=== PATIENT | male | born 1995 | race Two or more races ===

== ENCOUNTER 2024-10-10 06:22 | Day surgery (SDC) | payer BC, SELFPAY ==
[2024-10-10] VITALS (12 sets, daily range): BP systolic 118–153; BP diastolic 76–89; PULSE 64–80; RESP 16–20; TEMP 36.7–36.9; O2SAT 95–98; BMI 33.3
--- NOTE | 2024-10-10 06:31 | XR_ITS ---
Examination: CT abdomen and pelvis without contrast. Coronal 3-D reconstructions. Sagittal 2-D reconstructions. Date and time of exam:October 10, 2024 0722 hrs. Indications: Onset mid abdominal pain today CTDI: vol (mGy): 8.73 DLP: (mGycm): 527 Technique: Axial images of the abdomen have been obtained, 3 mm slice thickness Intravenous contrast material has not been administered. Low dose protocols were performed. One or more of the following dose reduction techniques were used; automated exposure control, adjustment of the mA and/or KV according to patient size, use of iterative reconstruction technique. Findings: Fatty infiltration throughout the liver Gallbladder wall is thickened and edematous Spleen is not enlarged No pancreatic or adrenal mass No renal or ureteral calculi, no hydronephrosis Aorta normal size Normal appendix No bowel obstruction No diverticulitis Contracted urinary bladder Adequate bone density Impression: Recommend hepatobiliary sonography follow-up to confirm acute acalculous cholecystitis
[2024-10-10] MEDS: METOCLOPRAMIDE 5 MG TABLET 10 MG PO (06:40)
--- NOTE | 2024-10-10 08:03 | XR_ITS ---
Examination: Abdomen sonogram, Limited Date and time of exam: October 10, 2024 0815 hours INDICATIONS: Right upper abdominal pain beginning 3 days ago with thickened gallbladder wall on CT abdomen pelvis study this morning Technique: Real-time bergeron scale transabdominal sonographic images of the upper abdomen obtained. Findings: Gallbladder wall 0.5 cm with edema Multiple gallstones, the largest 24 mm Common bile duct 0.4 cm Pancreatic head 2.5 cm Liver 14.7 cm irregular contour no focal liver lesions Normal hepatopedal portal venous flow Patent IVC IMPRESSION: Acute calculus cholecystitis, consider MRCP follow-up as clinically warranted
[2024-10-10 08:38] LABS: Basophils # (Auto) 0.1 Thou/mm3 (0.0-0.2); Basophils % (Auto) 0 % (0-2.5); Eosinophils # (Auto) 0.1 Thou/mm3 (0.0-0.5); Eosinophils % (Auto) 1 % (0-10); Hematocrit 46.4 % (41.0-53.0); Immature Granulocytes % (Auto) 0 % (0-0); Immature Granulocytes Auto 0.05 Thou/mm3 (0.00-0.00); Lymphocytes # (Auto) 2.6 Thou/mm3 (1.0-4.8); Lymphocytes % (Auto) 20 % (10-50); Mean Corpuscular HGB Conc 34.5 g/dl (31.0-37.0); Mean Corpuscular Hemoglobin 28.5 pg (25.0-35.0); Mean Corpuscular Volume 83 fL (80-100); Monocytes # (Auto) 1.3 Thou/mm3 (0.0-0.8); Monocytes % (Auto) 10 % (0-12); Neutrophils # (Auto) 8.7 Thou/mm3 (1.8-7.7); Neutrophils % (Auto) 68 % (37-80); Nucleated Red Blood Cell % 0 /100 WBC (0); Platelet Count 268 Thou/mm3 (140-440); RDW Standard Deviation 38.3 fL (35.1-43.9); Red Blood Count 5.62 Miln/mm3 (4.50-5.90); White Blood Count 12.8 Thou/mm3 (3.8-10.6)
[2024-10-10 09:07] LABS: Alanine Aminotransferase 41 U/L (10-49); Albumin, Serum 4.9 gm/dL (3.5-5.0); Alkaline Phosphatase 68 U/L (46-116); Anion Gap 8 (7-16); Aspartate Amino Transferase 19 U/L (0-34); BUN/Creatinine Ratio 14 Ratio (12-20); Bilirubin,Total 1.2 mg/dL (0.3-1.2); Blood Urea Nitrogen 13 mg/dL (9-23); Calcium 9.4 mg/dL (8.3-10.6); Calcium (Corrected) 9.4 mg/dL (8.5-10.1); Carbon Dioxide 26.9 mMol/L (20.0-31.0); Chloride 99 mMol/L (98-107); Creatinine (Component) 0.9 mg/dL (0.6-1.3); Estimated Creatinine Clearance 126.5 mL/min (>60); Globulin 2.5 gm/dL (2.3-3.5); Glucose 103 mg/dL (74-106); Lipase 26 U/L (12-53); Osmolality,Calculated 268 (275-295); Potassium 3.6 mMol/L (3.4-5.1); Sodium 134 mMol/L (136-145); Total Protein 7.4 gm/dL (5.7-8.2); eGFR > 60 See Note
--- NOTE | 2024-10-10 09:30 | PC.NURSE ---
in to assess pt. pt from home with c/o abd pain, n/v, and chills. pt reports pain suddenly started 3 days ago. pt without further complaints at this time. orders received and initiated. call light placed within reach. plan of care ongoing.
--- NOTE | 2024-10-10 09:32 | PD.EDABDPN ---
ED Abdominal Pain RME/HPI General Chief Complaint: Abdominal Pain Stated complaint: ABD PAIN,N/V Time seen by provider: 10/10/24 06:26 Arrival date/time: 10/10/24 06:22 29-year-old male with no significant medical problems presents to the emergency department complains of abdominal pain nausea vomiting since Wednesday patient denies fever chest pain or shortness of breath Limitations: no limitations Related Data Allergies Allergy/AdvReac Type Severity Reaction Status Date / Time NKA Allergy Unknown Uncoded 10/09/14 19:46 Review of Systems Review of Systems Systems Reviewed: All systems reviewed, normal except as documented Constitutional Constitutional: Reports system reviewed and no additional complaints, except as documented, Denies fever(s) and Denies headache(s) Eyes Eyes: Reports system reviewed and no additional complaints, except as documented and Denies blurry vision ENT Ears, Nose, Mouth, and Throat: Reports system reviewed and no additional complaints, except as documented, Denies headache(s), Denies nasal congestion and Denies nasal discharge Cardiovascular Cardiovascular: Reports system reviewed and no additional complaints, except as documented, Denies chest pain and Denies dyspnea Respiratory Respiratory: Reports system reviewed and no additional complaints, except as documented, Denies chest congestion, Denies cough and Denies dyspnea Gastrointestinal Gastrointestinal: Reports system reviewed and no additional complaints, except as documented, Reports abdominal pain, Reports nausea and Reports vomiting Integumentary/Breasts Skin/Breast: Reports system reviewed and no additional complaints, except as documented and Denies rash Neurologic Neurologic: Reports system reviewed and no additional complaints, except as documented, Reports as per HPI and Denies headache(s) Past Medical History Social History SMOKING STATUS: Current every day smoker ED Exam General Limitations: Present no limitations General appearance: Present alert and in no apparent distress Head Head exam: Present atraumatic Eye Eye exam: Present normal appearance, PERRL and EOMI; Absent conjunctival injection ENT ENT exam: Present normal exam, normal oropharynx and mucous membranes moist Neck Neck exam: Present normal inspection, full ROM and trachea midline Chest Chest inspection: Present normal inspection and symmetric chest wall rise Respiratory Respiratory exam: Present normal lung sounds bilaterally; Absent respiratory distress Cardiovascular Cardiovascular exam: Present regular rate, normal rhythm and normal heart sounds Abdominal Exam Abdominal exam: Present soft, tenderness and normal bowel sounds; Absent distention, guarding, rebound, rigidity, Engel's sign or tenderness at McBurney's Point Abdominal tenderness: Present RUQ and epigastrium; Absent RLQ Extremities Exam Extremities exam: Present normal inspection and full ROM Back Exam Back exam: Present normal inspection and full ROM Neurological Exam Neurological exam: Present alert, oriented X3 and CN II-XII intact Psychiatric Psychiatric exam: Present normal affect and normal mood Skin Skin exam: Present warm, dry, intact and normal color Course Quality Measures none Orders Category Date Time Status Patient Condition Routine Admission 10/10/24 10:[address] in Surgical Day Care Routine Admission 10/10/24 10:02 Active Activity as Tolerated Routine Care 10/10/24 10:02 Ordered COVID-19 Screening Questionnaire NOW Care 10/10/24 10:00 Active Consent [Obtain Written Consent For:] .NOW Care 10/10/24 10:02 Active Decision to Admit X1 Care 10/10/24 10:00 Completed Intake and Output QSHIFT Care 10/10/24 10:15 Ordered Notify provider NEEDED Care 10/10/24 10:02 Active Consult to General Surgery Stat Cons 10/10/24 10:[address] abdomen pelvis wo con Stat Exams 10/10/24 06:31 Completed US gall bladder Stat Exams 10/10/24 08:03 Completed CBC Stat Lab 10/10/24 08:09 Completed Comprehensive Metabolic Panel Stat Lab 10/10/24 08:09 Completed Lipase Stat Lab 10/10/24 08:09 Completed UA, C/S IF [Urinalysis, C/S if Indicated] Stat Lab 10/10/24 09:39 Received Acetaminophen Tab [Tylenol Tab] Med 10/10/24 10:02 Active 650 mg PO Q6H PRN Cefoxitin [Mefoxin] 2 gm Med 10/10/24 10:02 Active Sodium Chloride 0.9% (P) [Ns 0.9% (P)] 50 ml IV X1 Metoclopramide [Reglan] Med 10/10/24 06:31 Discontinued 10 mg PO X1 ONE Ondansetron Inj [Zofran Inj] Med 10/10/24 10:02 Active 4 mg IV Q6H PRN Code Status Routine Oth 10/10/24 10:02 Ordered Vital Signs Vital signs: Vital Signs Temperature 98.0 F 10/10/24 06:28 Pulse Rate 74 10/10/24 06:28 Respiratory Rate 18 10/10/24 06:28 Blood Pressure 149/85 H 10/10/24 06:28 Pulse Oximetry (%) 96 10/10/24 06:28 Oxygen Delivery Method Room Air 10/10/24 06:28 O2 saturation 96% room air within normal limits Abdominal Pain MDM MDM Narrative MDM Narrative:: 29-year-old male presents to the emergency department complains of abdominal pain nausea vomiting patient for symptoms ongoing for last couple of days patient reports no fever chest pain or shortness of breath On exam patient does not appear ill or toxic patient does not appear in acute distress Exam patient does have generalized tenderness in his abdomen Lab work as well as CT scan obtained CT scan concerning for possible cholecystitis Gallbladder ultrasound obtained Consultation: I spoke with Dr. White general surgeon who accepted the patient for admission Patient data External records reviewed:: [facility] previous records Clinical information provided by:: patient Social determinants that could affect healthcare access:: none Patient has the following chronic illnesses:: none How is presenting disease/condition affected by chronic disease/condition?: no chronic disease Evaluation data The following diagnostics were reviewed and interpreted by me:: lab results and radiology exam(s) Lab and/or radiology exams considered but not ordered:: Labs radiology obtained Interpretation Summary: Reviewed by me Medications / Prescriptions Medications or Prescriptions considered but not ordered:: Given Medication administrations:: Medication Administration History Acetaminophen (Acetaminophen 325 Mg Tablet) 650 mg PO Q6H PRN PRN Reason: Fever >101.5 Stop: 11/09/24 10:01 Cefoxitin Sodium 2 gm/ Sodium (Chloride) 50 mls @ 100 mls/hr IV X1 ONE Stop: 10/10/24 10:31 Ondansetron HCl (Ondansetron Inj 2 Mg/Ml Inj 2 Ml) 4 mg IV Q6H PRN PRN Reason: NAUSEA OR VOMITING Stop: 11/09/24 10:01 Discontinued Medications Metoclopramide HCl (Metoclopramide 5 Mg Tablet) 10 mg PO X1 ONE Stop: 10/10/24 06:32 Last Admin: 10/10/24 06:40 Dose: 10 mg Documented By: CVL Given Consultations Consultation(s) initiated? (list below): Yes Diagnosis Differential diagnosis abdominal pain: abdominal pain, acute appendicitis, gastroenteritis and pancreatitis Most likely diagnosis given after review of the tests above:: Cholecystitis Admission Indicated Admission indicated?: indicated Admission Request Was there a request for admission?: Yes Admission Attestation Admission request attestation: Discussed case with [] from Hospitalist service regarding admission. Discussed patients ED course, exam findings, labs, and radiology results. The Hospitalist [agrees,declines] to accept the patient for admission. Disposition Plan Disposition Plan: Admit Discharge Plan Plan Patient Disposition: Admit Acute Care w/in Hospital Disposition Comment: Stable Problem List Clinical Impression: Acute calculous cholecystitis PA/STORE GIFT WRAP ASSOCIATE Supervising Physician PA/RALPH Supervising Physician: Dr Ny
[2024-10-10 09:44] LABS: Collection Type, Urine Clean Catch; Squamous Epithelial Cell,Urine 0 /hpf (0-5)
[2024-10-10 09:56] LABS: Amorphous Crystals,Urine Present (Absent); Bilirubin,Urine Negative (Negative); Blood,Urine Negative (Negative); Color,Urine Yellow (Lt Yel-Yel); Culture Indicated,Urine Not Indicated; Glucose, Urine Negative (Negative); Ketones,Urine Negative (Negative); Leukocyte Esterase,Urine Negative (Negative); Nitrite,Urine Negative (Negative); PH,Urine 7.5 (5.0-7.0); Protein,Urine 1+ (Neg - Trace); RBC,Urine 5 /hpf (0-3); Urobilinogen,Urine Negative mg/dL (0.0-1.0); WBC,Urine 3 /hpf (0-5)
[2024-10-10] MEDS: CEFOXITIN 2 GM in SODIUM CHLORIDE 0.9% (P) 50 ML IV (10:13)
[2024-10-10 10:29] LABS: Clarity,Urine Hazy (Clear/Hazy)
--- NOTE | 2024-10-10 11:04 | PD.SURHP ---
HPI Date of Admission 10/10/2024 Chief Complaint Chief Complaint: Right upper quadrant abdominal pain with nausea and vomiting HPI 29-year-old male presented to the emergency department with worsening abdominal pain. His pain started 3 days ago in the epigastric and right upper quadrant. The pain was initially intermittent. Over the past few days his pain has become persistent and progressively worse. He has had multiple episodes of nausea and vomiting. He denies fever, chills, jaundice or discoloration of urine or stool. He denies having similar symptoms in the past. He was noted to have elevated WBC. His liver enzymes are unremarkable. CT scan and abdominal ultrasound revealed gallstones with gallbladder wall thickening and edema. Review of Systems Constitutional Constitutional: Denies chills, Denies fever(s) and Reports headache(s) ENT Ears, Nose, Mouth, and Throat: Reports headache(s) Cardiovascular Cardiovascular: Denies chest pain Respiratory Respiratory: Denies cough Gastrointestinal Gastrointestinal: Reports abdominal pain, Reports nausea and Reports vomiting Genitourinary Genitourinary: Denies difficulty urinating Musculoskeletal Musculoskeletal: Reports back pain Neurologic Neurologic: Reports headache(s) Hematologic/Lymphatic Hematologic/Lymphatic: Denies easy bleeding and Denies easy bruising Past Medical History Surgical History OTHER SURGICAL HX: Closed reduction and internal fixation of right tibial fracture Social History SMOKING STATUS: Current every day smoker SUBSTANCE USE: does not use ALCOHOL: Current Meds Home Medications and Allergies Allergies Allergy/AdvReac Type Severity Reaction Status Date / Time NKA Allergy Unknown Uncoded 10/09/14 19:46 Exam Vital Signs Temp Pulse Resp BP Pulse Ox O2 Del Method 98.1 F 80 17 153/85 H 97 Room Air 10/10/24 09:28 10/10/24 09:28 10/10/24 09:28 10/10/24 09:28 10/10/24 09:28 10/10/24 09:28 Constitutional Constitutional: no acute distress Routine HEENT Exam Eye: Present PERRL (Anicteric sclera) Routine Respiratory Exam Respiratory: Present CTA bilaterally Routine Cardiovascular Exam Cardiovascular: Present RRR Routine Abdominal Exam Abdominal: Present soft, normoactive bowel sounds and tenderness (Right upper quadrant tenderness to palpation with guarding, positive Engel sign); Absent distended Results Results: Laboratory Laboratory results: results reviewed Results: Imaging Imaging narrative: CT scan of abdomen pelvis, abdominal ultrasound images reviewed, radiologist interpretation noted Assessment & Plan Problem List (1) Acute calculous cholecystitis: Status: Acute Plan Will keep patient n.p.o. with IV fluids and IV antibiotics and plan for laparoscopic possible open cholecystectomy. Risks include but not limited to infection, bleeding, injury to bowel, liver, stomach, bile duct, retained stone, bile leak, abdominal sepsis and or abdominal abscess, need for further procedure and or operation discussed with the patient. Benefits and alternatives explained to him, all his questions answered, he agreed and consented to proceed with the operation. Quality Measures Quality Measures none
--- NOTE | 2024-10-10 12:06 | PC.CC ---
Pt Cesar Taylor is a 29 yr old male admitted to surgical services for acute calculous cholecystitis. SALES PRODUCER CC met with pt at bedside to complete inital assessment. At time of encounter pt is noted to be alert and oriented to person, place and situation. Pt expressed understanding that he is pending surgery. Pt able to confirm all demographic information. Pt is from home [address] [place] [address], where he lives with family. Pt identifies his brother Nadir Taylor [phone] as surrogate DM. Pt is employed. At baseline pt is independent with ambulation and with completion of his ADLs. Pt does not require supplemental O2. Pt is not diabetic and is not on dialysis. Pt reports not having a primary provider. At tD/c pt states she will return home, with either family transporting him, or if pt is able he will drive himself. Pt provided with [facility] guide for [facility] providers in [facility].
--- NOTE | 2024-10-10 13:59 | PD.SUROPNT ---
Date of Procedure 10/10/24 Pre Op Diagnosis Cholelithiasis with acute cholecystitis Post Op Diagnosis Cholelithiasis with acute cholecystitis Procedure Laparoscopic cholecystectomy Findings Distended gallbladder with gallbladder wall thickening and extensive pericholecystic edema. Large stone at the infundibulum of the gallbladder Procedure Description Patient was brought into the operating room in supine position. After administration of general endotracheal anesthesia abdomen was prepped and draped in standard surgical manner. A Veress needle was inserted through the umbilicus and pneumoperitoneum was obtained up to 15 mmHg. The Veress needle was then removed, a 5 mm infraumbilical incision was made and the 5mm trocar was inserted. Laparoscopic camera was placed. Under direct visualization a laparoscopic camera a 10 mm trocar was placed in subxiphoid and two 5 mm trocars placed in right upper quadrant. The gallbladder was identified and was noted to be very tense, distended, thick-walled with extensive pericholecystic edema. The gallbladder was decompressed with an aspirator. There was a large stone at the infundibulum of the gallbladder. The gallbladder was retracted cephalad and laterally. Dissection started near the infundibulum of gallbladder where cystic duct and gallbladder junction clearly identified. The cystic duct was circumferentially dissected off the peritoneum and surrounding inflammatory tissue. The critical view of safety was clearly demonstrated. Cystic duct was then divided between 2 endoclips proximally and one distally. The cystic artery was similarly dissected and divided. The gallbladder was then from the liver bed using electrocautery. The gallbladder was then placed inside an Endo Catch and removed from the abdomen utilizing subxiphoid trocar site. The area was copiously and thoroughly washed and irrigated, all the fluid was suctioned and the suction fluid returned clear. Hemostasis achieved using electrocautery. Endoclips noted be in place and intact without any bleeding or any leakage. Hemostasis was adequate and satisfactory. The subxiphoid trocar sites fascial defect was closed with 0 Vicryl using Endo Closure device. Instruments and trocars removed, pneumoperitoneum was evacuated and the incisions closed with 4-0 Monocryl in subcuticular fashion. Instrument needle and sponge counts were all reported to be correct X2. Patient tolerated the procedure well, was extubated, breathing spontaneously and without difficulty and was transferred to postanesthesia care in stable condition. Anesthesia GETA and local Pathology / specimen Other (Gallbladder and contents) Estimated Blood Loss 25 Condition Stable Disposition PACU Surgeon Yoselin White MD Surgical Staff Operation Date: 10/10/24 14:15 Case Staff Anesthesiologist: Dank Solano RNkitchenwhere maker: Amalia Mason
--- NOTE | 2024-10-10 14:00 | SUR.PHASEI ---
1400 Patient arrived to recovery resting comfortably in [facility], drowsy and able to arouse with verbal prompting, on oxygen 4L via nasal cannula, breathing unlabored, vital signs stable, denies pain, dressing intact to abdomen; dermabond, no bleeding noted, lung sounds clear upon auscultation, bilateral radial pulses present when palpated, report received from Jace OREILLY and Dr. Solano
--- NOTE | 2024-10-10 14:40 | SUR.PHASEII ---
1440 patient ate two jello and drinking apple juice, tolerating well
--- NOTE | 2024-10-10 14:50 | SUR.PHASEII ---
1450 called patient brother, as patient is ready for discharge, brother stated he was at home and would head to the hospital
--- NOTE | 2024-10-10 15:40 | SUR.PHASEII ---
1540 Patient meets discharge criteria from recovery, awake and alert, breathing unlabored, vital signs stable, denies pain, dressing intact; no bleeding noted, denies nausea, patient assisted with dressing into his clothing by his , discharge instructions given to patient and patients brother, brother signed discharge instructions. Patient given all his belongings prior to discharge, transported via wheelchair and left in a private vehicle.
== END 2024-10-10 15:40 | disposition home or self-care (01) ==
LOC: SERX 07:43 → S2EX 10:14
PROVIDERS: Nurse Practitioner Primary Care; Emergency Provider Emergency Medicine; Referring Provider Surgery; Visit Provider Surgery
PROC: 0FT44ZZ Resection of Gallbladder, Percutaneous Endoscopic Approach (ICD-10-PCS; CPT 47562; principal; 2024-10-10 14:00)
DX: K81.2 Acute cholecystitis with chronic cholecystitis (principal); F17.200 Nicotine dependence, unspecified, uncomplicated
CPT/HCPCS: 47562; 36415; 74176; 76705; 80053; 81001; 83690; 85025; 96365; 96366; 99285; A4217; A4649; J0131; J0694; J1100; J2405; J2704; J3010; J3490; J7050; A9270

== ENCOUNTER 2025-01-15 10:58 | Emergency (ER) | payer BC, SELFPAY ==
[2025-01-15 10:59] VITALS: BMI 33.3
[2025-01-15 11:08] VITALS: BP 143/88; PULSE 102; RESP 18; TEMP 36.7; O2SAT 96
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
[2025-01-15] MEDS: LIDOCAINE HCL 1% 20 ML VIAL INFL (11:18)
[2025-01-15] MEDS: DIPHTH,PERTUSS(ACELL),TET VAC 0.5 ML SYR- ADULT IMi (11:18)
--- NOTE | 2025-01-15 11:27 | PC.NURSE ---
IRRIGATED WOUND FOR SUTURES
== END 2025-01-15 13:14 | disposition home or self-care (01) ==
PROVIDERS: Emergency Provider Emergency Medicine
DX: S71.112A Laceration without foreign body, left thigh, initial encounter (principal); F17.210 Nicotine dependence, cigarettes, uncomplicated; Z23 Encounter for immunization; W25.XXXA Contact with sharp glass, initial encounter
CPT/HCPCS: 12002; 90471; 90715; 99283; J3490